=== PATIENT | female | born 1990 | race Caucasian/White ===

== ENCOUNTER 2017-07-26 21:07 | Emergency (ER) | payer BC ==
[~2017-07-26] VITALS: Ht 170.2 cm; Wt 69.9 kg
[~2017-07-26 21:07] MED LIST: FLAGYL500 MG PO; PRENATAL1 TA1 PO
[2017-07-26 21:12] VITALS: BP 126/90; TEMP 98.2
[2017-07-26] MEDS ORDERED: TOPAMAX 25MG25 M1 PO (21:15)
[2017-07-26] MEDS ORDERED: LEXAPRO 10MG10 MG PO (21:15)
[2017-07-26 21:43] LABS: BASO % 0.2 % (0.0-2.0); EOS # 0.1 (0.0-0.7); EOS % 0.8 % (0-4.0); GRAN # 8.1 (1.4-6.5); GRAN % 69.4 % (42.2-75.2); HEMATOCRIT 39.9 % (37.0-47.0); HEMOGLOBIN 14.2 g/dl (12.5-16.0); LYMPH # 2.6 (1.2-3.4); LYMPH % 22.6 % (20.0-51.0); MEAN CELL VOLUME 88 fl (80.0-100.0); MEAN CORPUSCULAR HEMOGLOBIN 31 pg (27.0-31.0); MEAN CORPUSCULAR HGB CONC 36 g/dl (33.0-37.0); MEAN PLATELET VOLUME 8.2 fl (7.4-10.4); MONO # 0.8 (0.1-0.6); MONO % 6.7 % (1.7-9.3); PLATELET COUNT 299 K/mm3 (130-400); RED BLOOD COUNT 4.53 M/mm3 (4.10-5.30); REDCELL DISTRIBUTION WIDTH-CV 11.7 % (11.5-14.5); WHITE BLOOD COUNT 11.7 K/mm3 (4.8-10.8)
[2017-07-26 21:59] LABS: ADJUSTED CALCIUM 9.6 mg/dL (8.4-10.2); ALBUMIN 4.6 gm/dL (3.5-5.0); BILIRUBIN,TOTAL 0.9 mg/dL (0.0-1.0); C-REACTIVE PROTEIN 1.1 mg/dL (0.0-0.9); CALCIUM 10.1 mg/dL (8.4-10.2); CREATININE, serum 0.94 mg/dL (0.52-1.25); POTASSIUM 3.5 mmol/L (3.4-5.0); TOTAL PROTEIN 7.9 gm/dL (6.4-8.2)
[2017-07-26 22:22] LABS: PH 6 (5-8); URINE APPEARANCE Cloudy; URINE BACTERIA Many /hpf; URINE BILIRUBIN Negative (NEGATIVE); URINE BLOOD 3+ (NEGATIVE); URINE COLOR Yellow; URINE GLUCOSE Negative (NEGATIVE); URINE KETONE Negative (NEGATIVE); URINE RBC >50 /hpf; URINE UROBILINOGEN Negative (NEGATIVE)
[2017-07-26 22:23] LABS: URINE WBC >50 /hpf
[2017-07-26] MEDS ORDERED: PYRIDIUM200 M1 PO (22:48)
[2017-07-26] MEDS ORDERED: CEFTIN 250250 MG/TAB PO (22:48)
[2017-07-26] MEDS ORDERED: DIFLUCAN200 MG PO (23:03)
[2017-07-26 23:09] VITALS: PULSE 80
== END 2017-07-26 23:10 | disposition home or self-care (01) ==
LOC: COL.ER 21:07
PROVIDERS: Physician Assistant
DX: N12 Tubulo-interstitial nephritis, not specified as acute or chronic (principal); Z32.02 Encounter for pregnancy test, result negative
CPT/HCPCS: J0696; J2405; J7030